=== PATIENT | female | born 1970 | race Asian ===

== ENCOUNTER 2016-11-20 02:37 | Emergency (ER) | payer OTHER ==
[~2016-11-20] VITALS: Ht 165.1 cm; Wt 63.0 kg
[2016-11-20] MEDS ORDERED: MORPHINE 4 MG/ML 1ML SYRINGE IV ONE (04:00)
[2016-11-20] MEDS ORDERED: AMPICILLIN SOD/SULBACTAM SOD 1.5 GM in D5W MINI-BAG PLUS 50 ML IV ONE (04:00)
[2016-11-20] MEDS ORDERED: AUGM500T34 PO (05:59)
[2016-11-20 06:10] VITALS: BP 134/97
== END 2016-11-20 06:12 | disposition home or self-care (01) ==
LOC: M ED 02:37
DX: L03.211 Cellulitis of face (principal)